=== PATIENT | female | born 1970 | race Caucasian/White ===

== ENCOUNTER 2016-12-09 15:16 | Outpatient (CLI) | payer MEDICARE | END 2016-12-09 15:17 | disposition home or self-care (01) | DX: R46.2 Strange and inexplicable behavior (principal) | CPT/HCPCS: A0425; A0429 ==

== ENCOUNTER 2016-12-09 15:27 | Emergency (ER) | payer MEDICARE ==
--- NOTE | 2016-12-09 15:32 | ED Physician Documentation ---
PD HPI [facility] - Stated complaint Stated Complaint: ALOC - History obtained from History obtained from: Patient, EMS - History of Present Illness Primary symptom: Other (Brought in by ambulance, reportedly called by family, she is visiting from [place], either has a personal or family history of psychiatric issues, not clear which on arrival. Patient only stating that she thinks she is monica and . Although she does state that she's had a partial hysterectomy. Denies drug use.) Review of Systems Unable to obtain: Confused PD PAST MEDICAL HISTORY - Present Medications Home Medications: Ambulatory Orders Medication Instructions Recorded Confirmed Acetaminophen with Codeine 1 each PO 12/09/16 [Tylenol with Codeine #4 Tablet] Alprazolam 0.5 mg PO 12/09/16 Dicyclomine [Bentyl] 20 mg PO QID 12/09/16 12/09/16 Gabapentin 600 mg PO QID 12/09/16 12/09/16 Methocarbamol [Robaxin] 500 mg PO BID 12/09/16 12/09/16 Promethazine [Phenergan] 25 - 50 mg PO Q6H PRN 12/09/16 12/09/16 Rizatriptan Benzoate [Rizatriptan] 10 mg PO 12/09/16 Sertraline [Zoloft] 100 mg PO DAILY 12/09/16 12/09/16 levETIRAcetam [Keppra] 500 mg PO BID 12/09/16 12/09/16 - Allergies Allergies/Adverse Reactions: Allergies Allergy/AdvReac Type Severity Reaction Status Date / Time Unable to Assess Allergy Verified 12/09/16 16:11 PD ED PE NORMAL - Vitals Vital signs reviewed: Yes - General General: Other (Occasionally clutching her abdomen and says she is monica) - HEENT HEENT: PERRL, EOMI - Neck Neck: Supple, no meningeal sign, No bony TTP - Cardiac Cardiac: RRR, No murmur - Respiratory Respiratory: No respiratory distress, Clear bilaterally - Abdomen Abdomen: Normal bowel sounds, Soft, Non tender, Other (bedside sono without iup) - Back Back: No CVA TTP, No spinal TTP - Extremities Extremities: No edema, No calf tenderness / cord - Psych Psych: Other (uncooperative, odd affect, hard to redirect) Results - Vitals Vitals: Vital Signs - 24 hr 12/09/16 12/09/16 15:28 20:52 Temperature 36.0 C L Heart Rate 109 H 88 Respiratory 17 18 Rate Blood Pressure 141/91 H 114/70 O2 Saturation 98 98 Oxygen O2 Source Room air - Labs Labs: Laboratory Tests 12/09/16 12/09/16 12/09/16 16:23 16:23 17:06 WBC 8.8 RBC 5.10 Hgb 14.3 Hct 43.9 MCV 86.0 MCH 28.1 MCHC 32.7 RDW 14.2 Plt Count 228 MPV 8.8 Neut # 7.4 H Lymph # 1.0 L [place] # 0.3 Eos # 0.0 Baso # 0.1 Absolute Nucleated RBC 0.00 Nucleated RBCs 0.0 Sodium 139 Potassium 3.9 Chloride 106 Carbon Dioxide 25 Anion Gap 8.0 BUN 6 Creatinine 0.7 Estimated GFR (MDRD) 90 Glucose 123 H Calcium 9.1 Total Bilirubin 0.5 AST 17 ALT 13 Alkaline Phosphatase 47 Total Protein 7.5 Albumin 4.8 Globulin 2.7 Albumin/Globulin Ratio 1.8 Lipase 24 Urine Color Urine Clarity Urine pH Ur Specific [place] Urine Protein Urine Glucose (UA) Urine Ketones Urine Occult Blood Urine Nitrite Urine Bilirubin Urine Urobilinogen Ur Leukocyte Esterase Urine RBC Urine WBC Ur Squamous Epith Cells Urine Bacteria Urine Mucus Ur Microscopic Review Urine Culture Comments Urine HCG, Qual Urine Opiates Screen POSITIVE H Ur Oxycodone Screen NEGATIVE Urine Methadone Screen NEGATIVE Ur Propoxyphene Screen NEGATIVE Ur Barbiturates Screen NEGATIVE Ur Tricyclics Screen NEGATIVE Ur Phencyclidine Scrn NEGATIVE Ur Amphetamine Screen NEGATIVE U Methamphetamines Scrn NEGATIVE U Benzodiazepines Scrn NEGATIVE Urine Cocaine Screen NEGATIVE U Cannabinoids Screen NEGATIVE Ethyl Alcohol < 5.0 12/09/16 17:06 WBC RBC Hgb Hct MCV MCH MCHC RDW Plt Count MPV Neut # Lymph # [place] # Eos # Baso # Absolute Nucleated RBC Nucleated RBCs Sodium Potassium Chloride Carbon Dioxide Anion Gap BUN Creatinine Estimated GFR (MDRD) Glucose Calcium Total Bilirubin AST ALT Alkaline Phosphatase Total Protein Albumin Globulin Albumin/Globulin Ratio Lipase Urine Color YELLOW Urine Clarity CLEAR Urine pH 6.0 Ur Specific [place] 1.015 Urine Protein NEGATIVE Urine Glucose (UA) NEGATIVE Urine Ketones 15 H Urine Occult Blood MODERATE H Urine Nitrite NEGATIVE Urine Bilirubin NEGATIVE Urine Urobilinogen 0.2 (NORMAL) Ur Leukocyte Esterase NEGATIVE Urine RBC None Seen Urine WBC 0-3 Ur Squamous Epith Cells MANY Squamous H Urine Bacteria None Seen Urine Mucus Moderate Strands Ur Microscopic Review INDICATED Urine Culture Comments NOT INDICATED Urine HCG, Qual NEGATIVE Urine Opiates Screen Ur Oxycodone Screen Urine Methadone Screen Ur Propoxyphene Screen Ur Barbiturates Screen Ur Tricyclics Screen Ur Phencyclidine Scrn Ur Amphetamine Screen U Methamphetamines Scrn U Benzodiazepines Scrn Urine Cocaine Screen U Cannabinoids Screen Ethyl Alcohol PD MEDICAL DECISION MAKING - ED course ED course: Seen and evaluated by the [facility] and sister wants to take her home and declines inpatient psychiatric treatment. Departure - Departure Disposition: 01 Home, Self Care Clinical Impression: Psychiatric illness Condition: Good Record reviewed to determine appropriate education?: Yes Instructions: ED Psychosis Comments: Call your doctor to arrange a follow up appointment. Make the next available appointment. In the interim return anytime if worse or if new symptoms develop.
[2016-12-09] MEDS ORDERED: levETIRAcetam 250 MG TABLET PO STA (16:14)
[2016-12-09] MEDS ORDERED: levETIRAcetam 250 MG TABLET ONE (16:16)
[2016-12-09 16:33] LABS: BASOPHILS # (AUTO) 0.1 10^3/uL (0.0-0.1); BASOPHILS % (AUTO) 1.3 %; EOSINOPHILS % (AUTO) 0.1 %; HCT - HEMATOCRIT 43.9 % (37.0-47.0); HGB - HEMOGLOBIN 14.3 g/dL (12.0-16.0); MEAN CORPUSCULAR HEMOGLOBIN 28.1 pg (27.0-31.0); MEAN CORPUSCULAR HGB CONC 32.7 g/dL (32.0-36.0); MEAN PLATELET VOLUME 8.8 fL (7.9-10.8); MONOCYTES # (AUTO) 0.3 10^3/uL (0.0-1.0); MONOCYTES % (AUTO) 3.6 %; NEUTROPHILS # (AUTO) 7.4 10^3/uL (1.5-6.6); RED CELL DISTRIBUTION WIDTH 14.2 % (12.0-15.0); UNCORRECTED WHITE BLOOD COUNT 8.8 x10^3/uL; WHITE BLOOD COUNT 8.8 x10^3/uL (4.8-10.8)
[2016-12-09 16:45] LABS: ALBUMIN/GLOBULIN RATIO 1.8 (1.0-2.2); BILIRUBIN,TOTAL 0.5 mg/dL (0.2-1.0); BUN - BLOOD UREA NITROGEN 6 mg/dL (6-20); CALCIUM 9.1 mg/dL (8.5-10.3); CARBON DIOXIDE - CO2 25 mmol/L (21-32); CHLORIDE 106 mmol/L (101-111); CREATININE 0.7 mg/dL (0.4-1.0); GFR - MDRD 90 (>89); GLUCOSE 123 mg/dL (70-100); LIPASE 24 U/L (22-51); POTASSIUM 3.9 mmol/L (3.5-5.0); SODIUM 139 mmol/L (135-145); TOTAL PROTEIN 7.5 g/dL (6.7-8.2)
[2016-12-09 17:15] LABS: BILIRUBIN,URINE NEGATIVE (NEGATIVE)
[2016-12-09 17:27] LABS: HCG UR QUAL NEGATIVE; UA w/ MICROSCOPIC CHARGE YES
[2016-12-09 17:38] LABS: UR CULTURE IF IND NOT INDICATED; WBC,URINE 0-3 /HPF (0-5)
[2016-12-09 20:52] VITALS: BP 114/70
== END 2016-12-09 21:52 | disposition home or self-care (01) ==
LOC: ED 15:27
DX: F29 Unspecified psychosis not due to a substance or known physiological condition (principal)
CPT/HCPCS: 36415; 80053; 80306; 81001; 81025; 83690; 85025; 99283; A9270; G0480; 80320; 81003; 87086

== ENCOUNTER 2016-12-11 01:25 | Outpatient (CLI) | payer MEDICARE | END 2016-12-11 01:26 | disposition critical access hospital (66) | LOC: EMS 01:25 | PROVIDERS: ATTEND Surgery | DX: R46.89 Other symptoms and signs involving appearance and behavior (principal) | CPT/HCPCS: A0425; A0429 ==

== ENCOUNTER 2016-12-11 01:30 | Emergency (ER) | payer MEDICARE | END 2016-12-11 08:44 | disposition home or self-care (01) | DX: F29 Unspecified psychosis not due to a substance or known physiological condition (principal); F22 Delusional disorders; G40.909 Epilepsy, unspecified, not intractable, without status epilepticus; F17.200 Nicotine dependence, unspecified, uncomplicated | CPT/HCPCS: 36415; 51701; 80053; 80306; 80307; 81001; 81025; 83690; 84443; 85025; 99283; 99284; G0480 ==